=== PATIENT | female | born 1985 | race Caucasian/White ===

== ENCOUNTER 2021-10-27 07:47 | Emergency (ER) | payer OTHER, SELFPAY ==
[2021-10-27 07:55] VITALS: BP 114/69; PULSE 80; RESP 20; TEMP 36.8; O2SAT 99
--- NOTE | 2021-10-27 08:20 | ED.FEMALEGU ---
HPI - Female Genitourinary General Chief complaint: VEGETABLE COOK Stated complaint: Infection Time Seen by Provider: 10/27/21 08:06 Source: patient Mode of arrival: ambulatory Limitations: no limitations History of Present Illness HPI Narrative: Vaginal discharge, foul-smelling, itching, for the last 3 to 4 days. Patient is sexually active. Last menstrual period 2 weeks ago, history of STD. Related Data Allergies Allergy/AdvReac Type Severity Reaction Status Date / Time No Known Allergies Allergy Unknown Verified 10/27/21 07:58 Review of Systems Review of Systems: CONSTITUTIONAL: Denies fever, chills, or sweats. EYES: Denies visual changes, redness, or discharge. ENT: Denies rhinorrhea, congestion, sore throat, or otalgia. CARDIOVASCULAR: Denies chest pain, palpitations, or edema. RESPIRATORY: Denies cough or dyspnea. GASTROINTESTINAL: Denies abdominal pain, nausea, vomiting, or diarrhea. GENITOURINARY: Denies dysuria or hematuria. SKIN: Denies rash or itching. MUSCULOSKELETAL: Denies back pain, joint pain, or myalgia. NEUROLOGIC: Denies headache, numbness, or weakness. PSYCHIATRIC: Denies anxiety or depression. Exam Narrative: General appearance: Well-developed, well-nourished Skin: Normal color, scattered bruises around the genital area Head: Normocephalic, nontraumatic Eyes: Clear conjunctiva ENT: Oropharynx normal, ears normal, nose normal Neck: Supple, nontender Chest and respiratory: Airway patent, no respiratory distress, no accessory muscle use Heart: Regular rate/rhythm Abdomen: Soft, nontender, no organomegaly, quiet bowel sounds Neurologic: Alert and oriented ?3, INTERSTATE PLANNER is normal as tested, no gross motor deficit : Speculum Exam - Vagina: normal appearance of the vagina, normal vaginal discharge (Thick white, yellowish, offensive odor discharge), abnormal vaginal discharge and tenderness Speculum Exam - Cervix: normal appearance of the cervix and Cervical os closed Course Course Emergency Course: Stable Vital Signs Vital signs: Vital Signs Temperature 36.8 C 10/27/21 07:55 Pulse Rate 80 10/27/21 07:55 Respiratory Rate 20 10/27/21 07:55 Blood Pressure 114/69 10/27/21 07:55 Pulse Oximetry 99 10/27/21 07:55 Temperature 36.8 C 10/27/21 07:55 Pulse Rate 80 10/27/21 07:55 Respiratory Rate 20 10/27/21 07:55 Blood Pressure 114/69 10/27/21 07:55 Pulse Oximetry 99 10/27/21 07:55 MDM - Female Genitourinary MDM Narrative Medical decision making narrative: STD is my concern Differential Diagnosis Differential diagnosis: Likely bacterial vaginosis, trichomoniasis and vaginitis Critical Care Time Critical Care Time Critical Care Time: No Discharge Plan Discharge Clinical Impression: Vaginitis Qualifiers: Chronicity: acute Qualified Code(s): N76.0 - Acute vaginitis Patient Disposition: Home, Self-Care Condition: Stable Instructions: Antibiotic Form, Vaginal Discharge (ED) Additional Instructions: Return if symptoms are worsening , call your family physician for appointment, take Tylenol as as needed for aches and pain, continue home medications., No sexual activity for 7 days Prescriptions: New metronidazole 500 mg tablet 500 mg PO Q12H Qty: 14 RF: 0 doxycycline monohydrate 100 mg capsule 100 mg PO BID Qty: 14 RF: 0 Follow-up/Referrals: Bradley Serra MD [Physician] - PHYSICIAN,TUBE DISPATCHER [Primary Care Provider] -
[2021-10-27] MEDS: cefTRIAXone 1 GM VIAL 0.5 GM IM (08:36)
[2021-10-27] MEDS: AZITHROMYCIN 250 MG TABLET 1000 MG PO (08:36)
[2021-10-27] MEDS: FLUCONAZOLE 150 MG TABLET PO (08:37)
[2021-10-27] MEDS: LIDOCAINE HCL 1% LOCAL INJ 20 ML VIAL (08:37)
== END 2021-10-27 09:01 | disposition home or self-care (01) ==
PROVIDERS: Emergency Provider Emergency Medicine
DX: N76.0 Acute vaginitis (principal)
CPT/HCPCS: 87070; 87077; 87491; 87591; 87808; 96372; 99284; A9270; J0696

== ENCOUNTER 2023-12-19 17:48 | Emergency (ER) | payer OTHER, SELFPAY ==
[2023-12-19 17:49] VITALS: BP 120/69; PULSE 81; RESP 16; TEMP 36.3; O2SAT 100
--- NOTE | 2023-12-19 19:16 | ED.GENADULT ---
HPI - General Adult General Chief complaint: Unspecified Stated complaint: R LOWER MOLAR TOOTH PAIN,SWELLING Time Seen by Provider: 12/19/23 18:07 Source: patient Mode of arrival: ambulatory Limitations: no limitations History of Present Illness HPI narrative: This is a 38 year old female that presents to the ER for multiple complaints ongoing over the last couple of days. Reports vaginal discharge. Also reports toothache ongoing for the last couple of days. Reports swelling and pain surrounding the tooth. Denies fevers, dysuria or hematuria. Related Data Allergies Allergy/AdvReac Type Severity Reaction Status Date / Time No Known Allergies Allergy Unknown Verified 10/27/21 07:58 Review of Systems Review of Systems: CONSTITUTIONAL: Denies fever ENT: Reports dentalgia GENITOURINARY: Denies dysuria or hematuria. SKIN: Denies rash All systems reviewed & are unremarkable except as noted in HPI and below PMFSH Past Medical History Medical History (Updated 12/19/23 @ 21:04 by Nereida Calzada PA-C) No active medical problems Social History Social History (Updated 12/19/23 @ 19:22 by Nereida Calzada PA-C) Substance use: current Exam Narrative: GENERAL: Well-appearing, well-nourished, and in no acute distress. HEAD: Normocephalic, atraumatic. EYES: EOMI. ENT: Mucous membranes moist. Oropharynx without tonsillar hypertrophy exudate or other lesions. Poor dentition. Tooth #30 tender to palpation with edema and fluctuance. Moderate right sided facial edema. Floor of mouth is soft, no trismus NECK: Right anterior cervical adenopathy CHEST: No respiratory distress. HEART: Regular rate EXTREMITIES: Normal range of motion. No edema. SKIN: Warm, dry, no rash. NEURO: No focal deficits. Alert and oriented x3. PSYCH: Normal mood and affect PELVIC: Normal external genitalia. Small amount of off white discharge in the vaginal vault Course Course Emergency Course: Patient updated on workup and agrees with plan of care Vital Signs Vital signs: Vital Signs Temperature 97.4 F L 12/19/23 17:49 Pulse Rate 81 12/19/23 17:49 Respiratory Rate 16 12/19/23 17:49 Blood Pressure 120/69 12/19/23 17:49 Pulse Oximetry 100 12/19/23 17:49 Oxygen Delivery Room Air 12/19/23 17:49 Temperature 97.4 F L 12/19/23 17:49 Pulse Rate 81 12/19/23 17:49 Respiratory Rate 16 12/19/23 17:49 Blood Pressure 120/69 12/19/23 17:49 Pulse Oximetry 100 12/19/23 17:49 Oxygen Delivery Room Air 12/19/23 17:49 Procedures Abscess I/D oral: Date of Incision: 12/19/23 Time of Incision: 21:07 Side (if applicable): right Local Anesthetic: none (cetacaine) Technique: incised with #11 blade Packing used?: none I&D Results: Pus and Blood Medical Decision Making MDM Narrative Medical decision making narrative: Patient presents to the ER with multiple complaints. Reporting vaginal discharge as well as a toothache. She is afebrile and nontoxic appearing. Small amount of off white vaginal discharge on exam. UA with evidence of infection, also many squamous epithelial cells. This will be sent for culture. Chlamydia, gonorrhea, Trichomonas are negative. Bedside test is negative. Patient will be started on metronidazole for possible BV. I did I and D a dental abscess. Will be started on Augmentin, which will also cover for possible UTI. Patient was updated on her workup and agrees with plan of care. She is to follow up with Gynecology and a dentist. She was given warnings to return to the ER Vital Signs Vital Signs: Vital Signs Temperature 97.4 F L 12/19/23 17:49 Pulse Rate 81 12/19/23 17:49 Respiratory Rate 16 12/19/23 17:49 Blood Pressure 120/69 12/19/23 17:49 Pulse Oximetry 100 12/19/23 17:49 Oxygen Delivery Room Air 12/19/23 17:49 Temperature 97.4 F L 12/19/23 17:49 Pulse Rate 81 12/19/23 17:49 Respiratory Rate 1
[2023-12-19] MEDS: BENZOCAINE/TETRACAINE SPRAY (*SP) 56 ML AEROSOL 1 SPRAY MUCOUS MEM (19:28)
[2023-12-19 19:57] LABS: Appearance Urine Cloudy (Clear); Bacteria Urine 1+ /hpf; Bilirubin Urine Negative (Negative); Blood Urine 1+ (Negative); Color Urine Dark Yellow (Yellow); Glucose Urine UA Negative (Negative); Ketones Urine Trace mg/dL (Negative); Leukocyte Esterase Ur 1+ LEU/UL (Negative); Mucus Urine Present /lpf; Need Manual Microscopic Reviewed; Nitrate Urine Negative (Negative); Non Pathogenic Casts >20; Protein Urine Trace mg/dL (Negative); RBC Urine 0-2 /hpf (0-2); Specific Grav Ur 1.019 (1.001-1.035); Squamous Epithelial Cell Urine Many /hpf (Few); WBC Urine 21-50 /hpf; White Blood Cell Casts Urine Present /lpf
[2023-12-19 20:01] LABS: Add Urine Microscopic? YES
[2023-12-19 20:30] LABS: Trichomonas Vag PCR NOT DETECTED (NOT DETECTE)
[2023-12-19 20:55] LABS: Chlamydia trachomatis NOT DETECTED (NOT DETECTE); Neisseria gonorrhoeae PCR NOT DETECTED (NOT DETECTE)
[2023-12-19] MEDS: AMOXICILLIN/CLAVULANATE K 875-125 MG TAB 1 TABLET PO (21:18)
== END 2023-12-19 21:29 | disposition home or self-care (01) ==
PROVIDERS: Emergency Provider Physician Assistant
DX: K04.7 Periapical abscess without sinus (principal); N89.8 Other specified noninflammatory disorders of vagina
CPT/HCPCS: 41800; 81001; 81025; 87070; 87077; 87086; 87491; 87591; 87661; 99284; A9270

== ENCOUNTER 2024-07-15 12:32 | Emergency (ER) | payer OTHER, SELFPAY ==
[2024-07-15 12:38] VITALS: BP 114/73; PULSE 116; RESP 18; TEMP 37.1; O2SAT 99
[2024-07-15 14:30] VITALS: BP 109/72; PULSE 97; RESP 9; TEMP 38.3; O2SAT 95
--- NOTE | 2024-07-15 14:44 | ED.FEMALEGU ---
HPI - Female Genitourinary General Chief complaint: Urogenital-Female Stated complaint: bilateral flank pain Time Seen by Provider: 07/15/24 14:31 History of Present Illness HPI Narrative: 39-year-old female presenting to the emergency department for evaluation for urinary tract infection symptoms. Patient reports he does a high frequency of urinary tract infections. Patient denies any current center for STDs. Patient states she does not trade sex for drugs. Patient states she is in a safe environment. Patient states she also states that she does have outpatient resources to help her quit. Patient declined any additional resources in the emergency department. Patient does admit to being an IV drug user. Patient does have multiple sores but denies any current abscesses. Related Data Allergies Allergy/AdvReac Type Severity Reaction Status Date / Time No Known Allergies Allergy Unknown Verified 10/27/21 07:58 Review of Systems Review of Systems: All systems reviewed & are unremarkable except as noted in HPI and below PMFSH Past Medical History Medical History (Updated 07/15/24 @ 16:52 by Jaylon Marshall MD) No active medical problems Social History Social History (Updated 12/19/23 @ 19:22 by Nereida Calzada PA-C) Substance use: current Exam Narrative: APPEARANCE: Well appearing, no pain, no distress, well-nourished. HEAD: normocephalic, atraumatic. EYES: PERRLA/EOMI, conjunctivae clear. NOSE: Normal no drainage EARS:TMS clear with good light reflex. THROAT: Pharynx clear, no exudate. NECK: Supple. No adenopathy, no masses. RESPIRATORY: Airway patent, respirations nonlabored. Clear to auscultation bilaterally, no rales, rhonchi, wheezing. CARDIOVASCULAR: Regular rate and rhythm without murmurs rubs or gallops. ABDOMINAL: Soft, nontender, nondistended, normal bowel sounds MUSCULOSKELETAL: Moves all extremities. Strength/ROM intact, No edema, No calf tenderness. NEURO: Alert. Cranial nerves II through XII intact. Grossly intact SKIN: Multiple skin sores no evidence of abscess is amenable to drainage Course Course Emergency Course: Patient was treated for urinary tract infection with IV Rocephin and discharged home on Keflex. Vital Signs Vital signs: Vital Signs Temperature 98.7 F 07/15/24 12:38 Pulse Rate 116 H 07/15/24 12:38 Respiratory Rate 18 07/15/24 12:38 Blood Pressure 114/73 07/15/24 12:38 Pulse Oximetry 99 07/15/24 12:38 Oxygen Delivery Room Air 07/15/24 12:38 Temperature 98.9 F 07/15/24 16:40 Pulse Rate 92 07/15/24 17:45 Respiratory Rate 18 07/15/24 17:45 Blood Pressure 101/61 07/15/24 17:45 Pulse Oximetry 99 07/15/24 17:45 Oxygen Delivery Room Air 07/15/24 12:38 MDM - Female Genitourinary MDM Narrative Medical decision making narrative: 39-year-old female present to ED for evaluation for urinary symptoms. Patient is afebrile but does have a leukocytosis of 14.9 hemoglobin of 9.8. Urine was concerning for urinary tract infection. Patient was treated with 1 g of IV Rocephin and discharged home on Keflex. Patient states she does feel improved with treatment. Patient was comfortable the plan for discharge to home. All questions concerns were addressed. Differential Diagnosis Differential diagnosis: Likely urinary tract infection, bacterial vaginosis, trichomoniasis, cervicitis, cystitis and dysmenorrhea Lab Data Attestation: I reviewed the patient's lab results. 07/15/24 15:33 07/15/24 15:33 Labs: Lab Results 07/15/24 07/15/24 Range/Units 15:33 16:09 WBC 14.9 H (4.5-10.0) K/mm3 RBC 3.32 L (4.2-5.4) M/mm3 Hgb 9.8 L (12.0-15.0) g/dL Hct 29.7 L (37.0-47.0) % MCV 89.5 (80-100) fl MCH 29.5 (26-34) pg MCHC 33.0 (32-36) g/dl RDW 14.2 (11.5-14.5) % Plt Count 227 (150-375) k/mm3 MPV 8.3 (7.4-10.4) fl Immature Gran % (Auto) 0.6 H (0-0.5) % Neut % (Auto) 84.0
[2024-07-15 15:51] LABS: Basophils Percent Auto 0.2 % (0.2-1.2); Eosinophils Percent Auto 0.1 % (0-4.4); Hematocrit 29.7 % (37.0-47.0); Hemoglobin 9.8 g/dL (12.0-15.0); Immature Granulocyte Absolute 0.09 K/mm3 (0.00-0.031); Immature Granulocyte Percent A 0.6 % (0-0.5); Lymphocytes Absolute Auto 0.62 K/mm3 (0.9-3.2); Lymphocytes Percent Auto 4.1 % (18.3-44.2); Mean Corpuscular Hemoglobin 29.5 pg (26-34); Mean Corpuscular Volume 89.5 fl (80-100); Mean Platelet Volume 8.3 fl (7.4-10.4); Monocytes Absolute Auto 1.7 K/mm3 (0.1-0.6); Neutrophils Absolute Auto 12.5 K/mm3 (1.3-6.7); Platelet Count Result 227 k/mm3 (150-375); Red Blood Count 3.32 M/mm3 (4.2-5.4); Red Cell Distribution Width 14.2 % (11.5-14.5); White Blood Count 14.9 K/mm3 (4.5-10.0)
[2024-07-15 16:07] LABS: Alanine Aminotransferase 13 U/L (6-35); Albumin Level 3.6 g/dL (3.5-5.1); Alkaline Phosphatase 117 U/L (38-126); Anion Gap 6 mmol/L (4-12); Aspartate Amino Transferase 41 U/L (14-36); Bilirubin,Total 0.7 mg/dL (0.2-1.3); Blood Urea Nitrogen 12 mg/dL (7-17); Calcium 8.4 mg/dL (8.4-10.2); Carbon Dioxide 32 mmol/L (22-30); Chloride 95 mmol/L (98-107); Estimated CRCL calculation 104 ml/min; Estimated Glomerular Filt Rate > 60; Glucose 114 mg/dL (65-110); Potassium 3.4 mmol/L (3.4-5.0); Sodium 133 mmol/L (137-145)
[2024-07-15] MEDS: ACETAMINOPHEN 500 MG TABLET 1000 MG PO (16:11)
[2024-07-15 16:21] LABS: Add Urine Microscopic? YES; Appearance Urine Turbid (Clear); Bacteria Urine 4+ /hpf; Bilirubin Urine Negative (Negative); Blood Urine 2+ (Negative); Color Urine Yellow (Yellow); Glucose Urine UA Negative (Negative); Ketones Urine Negative (Negative); Leukocyte Esterase Ur 3+ LEU/UL (Negative); Nitrate Urine Negative (Negative); Protein Urine 2+ mg/dL (Negative); RBC Urine 0-2 /hpf (0-2); Specific Grav Ur 1.013 (1.001-1.035); Squamous Epithelial Cell Urine Few /hpf (Few); WBC Urine >100 /hpf (0-3); pH Urine 5.5 (5.0-9.0)
[2024-07-15 16:40] VITALS: BP 97/62; PULSE 85; RESP 16; TEMP 37.2; O2SAT 95
[2024-07-15 17:45] VITALS: BP 101/61; PULSE 92; RESP 18; O2SAT 99
== END 2024-07-15 17:46 | disposition home or self-care (01) ==
PROVIDERS: Emergency Provider Emergency Medicine
DX: N39.0 Urinary tract infection, site not specified (principal)
CPT/HCPCS: 36415; 80053; 81001; 85025; 87077; 87086; 87088; 87186; 96365; 99284; A9270; J0696

== ENCOUNTER 2025-10-01 16:10 | Emergency (ER) | payer OTHER, SELFPAY ==
--- OUTSIDE RECORDS SUMMARY | 2025-10-01 16:12 | XMS_ITS | Patient Health Record ---
Author Organization Counts include 234 beds at the [facility] Address [address] [place] [address] Care Team Providers Care Bushel Girl Name Role Phone Luann Alfaro Primary Care Provider [employer] [facility], Adult MOLLY Unavailabl e [phone] Allergies No Known Allergies Reason For Referral No Information Medications Medication SIG (Take, Route, Fr equency, Duration) Notes Start Date End Date Status Mirtazapine 15 MG 1 tablet at bedtime Orally Once a day; Duration: 30 days Active Zoloft 50 MG 1 tablet Orally Once a day; Duration: 30 days 08/19/2023 Active Social History Tobacco Use: Social History Observation Description Date Details (start date - stop date) Current Smoker NA - NA Sex Assigned At : Social History Observation Description Sex Assigned At Female Dont use, Tobacco Use/Smoking Question Answer Notes Are you a current smoker How often do you smoke cigarettes? every day How many cigarettes a day do you smoke? 6-10 How soon after you wake up d o you smoke your first cigarette? within 5 minutes Are you interested in quitting? Not ready to chris t Additional Findings: Tobacco User Light cigarett e smoker ((1-9 cigs/day) PRAPARE Question Answer Notes Date Completed/Updated: 07/18/2018 What is your current housing situation? I have h ousing Are you worried about losing your housing? Yes What is the highest level of school that you have finished? High school diploma or GED What is your current work situation? Unemployed and seeking work In the past year, have you o r any family members you live with been unable to get any of the following when it was really needed? Check all that apply Food Has lack of transportation k ept you from medical appointments, meetings, work or from getting things needed for daily living? No How often do you see or talk to people that you care about and feel close to? (For example: talking to friends on the phone, visiting friends or family, going to caodaism or club meetings) More than 5 times a week How stressed are you? Stress is when someone feels tense, nervous, anxious, or can\t sleep at night because their mind is troubled Quite a bit In the past year have you sp ent more than 2 nights in a row in a [facility], senior living, long term center, or juvenile correctional facility? Yes What was your release date? 07/13/2018 Are you a refugee? No What country are you from? [place] Do you feel physically and e motionally safe where you currently live? Yes In the past year, have you b een afraid of your partner or ex-partner? No PRAPARE Score: 9 Section Notes: Problems Problem Type SNOMED Code ICD Code Onset Dates Problem Status W/U Status Risk Notes Problem Tobacco dependence (85430823) Tobacco dependence (F17.200) Active confirmed Problem Major depressive disorder (916292654) MDD (major depressive disorder) (F32.9) Active confirmed Problem Opioid dependence (29650689) Opioid use disorder, severe (F11.20) Active confirmed Plan Of Treatment Pending Test Test Name Order Date HIV Screen *HIV 1, 2 Ab, p24 Ag (162420) 09/28/2017 Hepatitis Panel (4)* 09/28/2017 Hepatic Function Panel (7)* 09/28/2017 CMP14+LP+CBC/D/Plt+T4+TSH 09/28/2017 Insurance Providers Payer Name Payer Address Payer Phone Subscriber Number Group Number Insured Name Patient Relationship to Insured Coverage Start Date Coverage End Date [employer] [address] [place] [address] [id number] Maci Higgins Self - patient is the insured 8 [employer] [address] [place] [address] [id number] Maci Higgins Self - patient is the insured 7 [employer] [address] [place] [address] [id number] Maci Higgins Self - patient is the insured 3 Medications Administered Medication Instructions Date of Administration Dosage Notes Vivitrol 03/08/2018 380 mg Exp jun 2020 M anufact by Simran meyer. Medical (General) History Medical History History ICD Code depression anxiety insomnia hepatitis C genital herpes Surgical History Surgery Date(Month/Year) Right pinky finger surgery 12/2022 Hospitalization History Reason Date(Month/Year) Blood infection 12/2022
--- OUTSIDE RECORDS SUMMARY | 2025-10-01 16:12 | XMS_ITS | Clinical Summary ---
Author Organization [facility] Address [address] [place] [address] Phone Care Team Providers Care Swimming Pool Installer Name Role Phone Provider, None Primary Care Provider Unavailabl e Allergies No known active allergies Medications ValACYclovir HCl (VALTREX PO) Take 400 mg by mouth 2 times daily. Active buPROPion SR (WELLBUTRIN SR) 150 MG TABLET SR 12 HR Take 150 mg by mouth 2 times daily. Active sertraline (ZOLOFT) 100 MG Tablet Take 100 mg by mouth daily. Active mirtazapine (REMERON) 15 MG Tablet Take 15 mg by mouth nightly. Active ondansetron (ZOFRAN-ODT) 4 MG TABLET DISPERSIBLE Take 1 Tab by mouth every 8 hours as needed for Nausea - 1st line. 10 Tab 8 Active Additional Information Patient not taking.Reported on 04/10/2024 ALPRAZolam (XANAX) 0.5 MG Tablet Take 0.5 mg by mouth 3 times daily as needed. Active albuterol 108 (90 Base) MCG/ACT Aerosol Solution take 2 Puffs by inhalation every 6 hours as needed for Wheezing or Cough. 1 Inhaler 9 Active Additional Information Patient not taking.Reported on 04/10/2024 Active Problems Problem Noted Date Diagnosed Date Septic arthritis 04/11/2024 Cellulitis of hand, left 04/11/2024 Cellulitis of hand, right 04/11/2024 Cellulitis of left lower extremity 04/11/2024 Tobacco dependence 04/11/2024 History of hepatitis C 04/11/2024 Polysubstance abuse 04/10/2024 IV drug user 04/10/2024 Resolved Problems Problem Noted Date Diagnosed Date Resolved Date Dehydration 04/11/2024 04/13/2024 Family History Medical History Relation Name Comments No Known Problems Father No Known Problems Mother Relation Name Status Comments Father Mother Social History Tobacco Use Types Packs/Day Years Used Date Smoking Tobacco: Every Day Cigarettes 0.5 20 Smokeless Tobacco: Former Tobacco Cessation:Ready to Q uit: Not Asked; Counseling Given: Not Answered Alcohol Use Standard Drinks/Week Comments No 0 (1 standard drink = 0.6 oz pur e alcohol) [facility] Utilities Answer Date Recorded In the past 12 months has e electric, gas, oil, or water company threatened to shut off services in your home? Patient declined 04/10/2024 Social Connection and Isolation Panel Answer Date Recorded In a typical week, how many times do you talk on the phone with family, friends, or neighbors? Patient declined 04/10/2024 How often do you get togethe r with friends or relatives? Patient declined 04/10/2024 How often do you attend adventism or zoroastrianism serv ices? Patient declined 04/10/2024 Do you belong to any clubs o r organizations such as adventism groups, unions, fraternal or athletic groups, or school groups? Patient declined 04/10/2024 How often do you attend meet ings of the clubs or organizations you belong to? Patient declined 04/10/2024 Are you , , di vorced, , never , or living with a partner? Patient declined 04/10/2024 AUDIT-C Answer Date Recorded Q1: How often do you have a drink containing alc ohol? Patient declined 04/10/2024 Q2: How many drinks containi ng alcohol do you have on a typical day when you are drinking? Patient declined 04/10/2024 Q3: How often do you have si x or more drinks on one occasion? Patient declined 04/10/2024 Overall Financial Resource Strain (CARDIA) Answe r Date Recorded How hard is it for you to pa y for the very basics like food, housing, medical care, and heating? Patient declined 04/10/2024 [facility] - Occupational Stress Questionnaire Answer Date Recorded Do you feel stress - tense, restless, nervous, or anxious, or unable to sleep at night because your mind is troubled all the time - these days? Patient declined 04/10/2024 Exercise Vital Sign Answer Date Recorde d On average, how many days pe r week do you engage in moderate to strenuous exercise (like a brisk walk)? Patient declined On average, how many minutes do you engage in exercise at this level? Patient declined 04/10/2024 Hunger Vital Sign Answer Date Recorded Within the past 12 months, y ou worried that your food would run out before you got the money to buy more. Patient declined Within the past 12 months, t he food you bought just didn't last and you didn't have money to get more. Patient declined PRAPARE - Transportation Answer Date Re corded In the past 12 months, has l ack of transportation kept you from medical appointments or from getting medications? Patient declined 04/10/2024 In the past 12 months, has l ack of transportation kept you from meetings, work, or from getting things needed for daily living? Patient declined 04/10/2024 Housing Stability Vital Sign Answer Pavel e Recorded In the last 12 months, was t here a time when you were not able to pay the mortgage or rent on time? Patient declined 04/10/20 24 In the last 12 months, how many places have you lived? 1 04/10/2024 In the last 12 months, was t here a time when you did not have a steady place to sleep or slept in a longterm (including now)? Patient declined 04/10/2024 Comments Unknown Sex and Gender Information Value Date Recorded Sex Assigned at Not on file Legal Sex Female 12:32 AM CDT Gender Identity Not on file Sexual Orientation Not on file Last Filed Vital Signs Vital Sign Reading Time Taken Comments Blood Pressure 86/54 02/11/2025 1:30 PM CDT Pulse 66 02/11/2025 1:30 PM CDT Temperature 35.9 C (96.7 F) 02/11/2025 10:50 AM CDT Respiratory Rate 17 02/11/2025 1:30 PM CDT Oxygen Saturation 94% 02/11/2025 1:30 PM CDT Inhaled Oxygen Concentration - - Weight 56.7 kg (125 lb) 02/11/2025 10:50 AM CDT Height 160 cm (5' 3) 02/11/2025 10:50 AM CDT Body Mass Index 22.14 02/11/2025 10:50 AM CDT Plan of Treatment Health Maintenance Due Date Last Done Comments Mammogram 1985 Hepatitis B Immunization (1 of 3 - 19+ 3-dose series) 2004 10/07/2009 Pneumococcal Immunization Combined (1 of 2 - PCV) 2004 Pap Smear 2006 Human Papillomavirus (HPV) Immunization (1 - 3-dose SCDM series) 2012 Cervical Cancer Screening (CCS) 2015 HPV/Cotest 2015 Discussion re Starting/Frequency of Mammograms 2025 Influenza Immunization (#1) 07/30/202508/29, 10/11/2016, 10/12/2015 SARS-COV-2 Immunization ( season) 2025 Respiratory Syncytial Virus (RSV) Immunization (Adult) (1 - 1-dose 75+ series) 2060 DTaP/Tdap/Td Immunization Discontinued 2013, 03/23/2001 TdaP Immunization Completed 05/02/2014 Meningococcal Immunization (ACWY) Aged Out No longer eligible based on patient's age to complete this topic Rotavirus Immunization Aged Out No lo nger eligible based on patient's age to complete this topic Insurance MEDICAID [employer] Advance Directives * Full Code (Latest Code Status on File) Date Activated Date Inactivated Comments 04/10/2024 4:10 PM 04/13/2024 5:42 PM CPR-Full Timmy atment: FULL ARREST: Attempt Resuscitation/CPR wit intubation and mechanical ventilation. PRE-ARREST: Use entire range of life support measures to stabilize the patient. Care Teams Swimming Pool Installer Relationship Specialty Start Date End Date Provider, None [place] PCP - General 01/11/19
[2025-10-01 16:22] VITALS: BP 136/90; PULSE 69; RESP 20; TEMP 36.8; O2SAT 100
--- NOTE | 2025-10-01 16:50 | ED_ITS ---
HPI - Female Genitourinary General Chief complaint: Urogenital-Female Stated complaint: uti symptoms Time Seen by Provider: 10/01/25 16:51 Source: patient, RN notes reviewed and old records reviewed Mode of arrival: ambulatory Limitations: no limitations History of Present Illness HPI Narrative: 40-year-old female presents to the [facility] with concerns for a UTI and a ?bacterial infection. ?. History of bacterial infections. Reports symptoms have been going on for 3-4 days. Decreased output. White thick discharge. Denies any pain. Denies fevers. Denies abdominal pain. Patient is also wanting STI testing Related Data Allergies Allergy/AdvReac Type Severity Reaction Status Date / Time No Known Allergies Allergy Unknown Verified 10/01/25 16:26 Review of Systems Review of Systems: All systems reviewed & are unremarkable except as noted in HPI and below Constitutional: Constitutional: Reports no additional constitutional complaints ENT: Reports system reviewed and no additional complaints, except as documented Cardiovascular: Cardiovascular: Reports no additional cardiovascular complaints, Denies chest pain and Denies dyspnea Respiratory: Respiratory: Reports no additional respiratory complaints, Denies chest congestion, Denies cough and Denies dyspnea Genitourinary: Genitourinary: Reports as per HPI Musculoskeletal: Musculoskeletal: Reports no additional musculoskeletal complaints Integumentary/Breasts: Skin/Breast: Reports system reviewed and no additional complaints, except as docu [facility] Past Medical History Medical History (Updated 10/02/25 @ 00:02 by Wyatt Fitch) No active medical problems Social History Social History (Updated 12/19/23 @ 19:22 by Nereida Calzada PA-C) Substance use: current Comments At the time of my signature, I reviewed and agree with the nursing past medical, surgical, social, and family history. There is no relevant family history pertinent to the patient complaint. Exam Const: General: cooperative, no acute distress, well developed, alert, uncomfortable and well nourished Nutritional Appearance: well nourished Orientation/consciousness: patient oriented x3 Limitations: no limitations HENMT: Head: normal to inspection Ears: hearing grossly normal bilaterally Mouth: Yes Normal oral and palatal mucosa present, Yes lip normal, Yes tongue normal and Yes moist mucous membranes Eyes: General: appearance normal, both eyes and all related structures Alignment and Position: alignment normal Neck: Neck: normal visual inspection, full ROM, no lymphadenopathy and no meningeal signs Chest: Chest palpation & inspection: normal inspection of the chest Resp: Effort & Inspection: normal respiratory effort and able to speak in complete sentences Auscultation: clear to auscultation bilaterally, no crackles, no rales, no rhonchi and no wheezes Cardio: Rate: regular rate GI: GI Palp: No abdominal tenderness : Speculum Exam - Vagina: normal appearance of the vagina Speculum Exam - Cervix: normal appearance of the cervix Other: Chaperoned by Becka AGUILAR Skin: General skin exam: normal color and no rashes or lesions noted Neuro: General: patient oriented x3, gait normal, moves all extremities and no meningeal signs Cognition (Neuro): normal cognition Speech: normal speech Gait exam (Neuro): Normal gait present Extrem: General: normal to inspection, full ROM, capillary refill normal and normal gait Psych: Appearance: grossly normal and well kempt Mental Status: mental status grossly normal Speech and movement: Normal speech and movement present and Clear speech present Affect: normal affect Attitude: cooperative Course Course Level of Care: Express Care Visit Vital Signs Vital signs: Vital Signs Temperature 98.2 F 10/01/25 16:22 Pulse Rate 69 10/01/25 16:22 Respiratory Rate 20 10/01/25 16:22 Blood Pressure 136/90 10/01/25 16:22 Pulse Oximetry 100 10/01/25 16:22 Oxygen Delivery Room Air 10/01/25 16:22 Temperature 98.2 F 10/01/25 16:22 Pulse Rate 69 10/01/25 16:22 Respiratory Rate 20 10/01/25 16:22 Blood Pressure 136/90 10/01/25 16:22 Pulse Oximetry 100 10/01/25 16:22 Oxygen Delivery Room Air 10/01/25 16:22 Reviewed MDM - Female Genitourinary MDM Narrative Medical decision making narrative: Patient sitting in exam room. Patient is nontoxic, vitals stable. Patient presents with concerns for UTI and bacterial vaginitis and STI. Urine showed no signs of infection. Will prescribe Metrogel for possible BV. Patient is appropriate for outpatient treatment with close follow Discharge instructions reviewed with patient, as well as provided in writing per nursing staff. The instructions also include specific and strict return/GO TO THE ER as well as f/u information. All questions have been answered, and the patient deny any further questions with discharge and discharge plan. Some parts of this dictation were generated by voice recognition software and may contain typographical and/or grammatical inaccuracies. Differential Diagnosis Differential diagnosis: Likely urinary tract infection, bacterial vaginosis, trichomoniasis and cystitis Lab Data Labs: Lab Results 10/01/25 10/01/25 10/01/25 Range/Units 16:34 17:13 17:27 POC Urine Color Yellow POC Urine Clarity Cloudy POC Urine pH 6.0 POC Ur Specif [place] 1.020 POC Urine Protein Negative (Negative) POC Ur Glucose (UA) Negative (Negative) POC Urine Ketones Negative (Negative) POC Urine Blood 2+ (Negative) POC Urine Nitrite Negative (Negative) POC Urine Bilirubin Negative (Negative) POC Urine Urobilinogen 0.2 POC U Leukocyte Esteras Negative (Negative) POC Urine HCG, Qual Negative (Negative) C. trachomatis (PCR) Not detected (NOT DETECTE) N. gonorrhoeae (PCR) Not detected (NOT DETECTE) T. vaginalis (PCR) Not detected (NOT DETECTE) Reviewed Critical Care Time Critical Care Time Critical Care Time: No Discharge Plan Discharge Clinical Impression: Concern about STD in female without diagnosis, Bacterial vaginosis Patient Disposition: Home Condition: Stable Instructions: Bacterial Vaginosis (ED) Additional Instructions: a list of primary care providers have been given to you. Please follow-up as soon as possible with somebody for further evaluation, testing and treatment you been tested for chlamydia, gonorrhea and Trichomonas. results can take up to 5 days. You will only be notified if they are positive. Absolutely no sex of any type until you have results. If you are positive for anything it is recommended that you do not have any sex of any type for 2 weeks. Patient Language: Portuguese Prescriptions: New metronidazole [MetroCream] 0.75 % cream 1 applic topical HS 7 Days Qty: 45 0RF No Action metronidazole 500 mg tablet 500 mg PO Q12H Qty: 14 0RF doxycycline monohydrate 100 mg capsule 100 mg PO BID Qty: 14 0RF amoxicillin-pot clavulanate 875-125 mg tablet 1 tablet PO Q12H 10 Days Qty: 20 0RF metronidazole 500 mg tablet 500 mg PO Q12H 7 Days Qty: 14 0RF cephalexin 500 mg capsule 500 mg PO Q6H 7 Days Qty: 28 0RF Follow-up/Referrals: UNKNOWN,DOCTOR [Primary Care Provider] Time of Disposition: 17:24
[2025-10-01 17:18] LABS: EDUAAPPEAR Cloudy; EDUABILI Negative (Negative); EDUABLOOD 2+ (Negative); EDUACOLOR1 Yellow; EDUAGLUCOSE Negative (Negative); EDUAKETONE Negative (Negative); EDUALEUKO Negative (Negative); EDUANITRATE Negative (Negative); EDUAPH 6.0; EDUAPROTEIN Negative (Negative); EDUASPGRAVITY 1.020; EDUAUROBILI 0.2
--- NOTE | 2025-10-01 17:28 | PC.NURSE ---
RN present while [employer] performed pelvic exam. Swabs collected to be sent to lab.
[2025-10-01 17:34] LABS: BEDSIDEPREGUCG Negative (Negative)
[2025-10-01 20:27] LABS: Trichomonas Vag PCR NOT DETECTED (NOT DETECTE)
== END 2025-10-01 17:34 | disposition home or self-care (01) ==
PROVIDERS: Emergency Provider Nurse Practitioner
DX: N76.0 Acute vaginitis (principal); Z11.3 Encounter for screening for infections with a predominantly sexual mode of transmission
CPT/HCPCS: 81003; 81025; 87086; 87491; 87591; 87661; 87798; 99213; G0463